=== PATIENT | female | born 1970 | race Caucasian/White ===

== ENCOUNTER 2025-09-27 09:59 | Day surgery (SDC) | payer OTHER ==
[~2025-09-27] VITALS: Ht 170 cm; Wt 120.4 kg
[~2025-09-27 09:59] MED LIST: BCOIRO PO; BIRTHCONTROL PILL; CEPH500 PO; CRUTCH USE; HYDACE5 PO; HYDHCL25 PO; IBUP600 PO; IBUP800 PO; MULVITA PO; Norco 5-325 Ta1 EACH PO; OXYACE5T PO; PROM25 PO; RXOXYACE PO; SERT100 PO; VENL75; VICODIN 5-3001 EACH PO; Zofran Odt4 MG SL
[2025-09-27 11:04] VITALS: BP 146/93
--- NOTE | 2025-09-27 11:22 | NUR ---
09/27/25 [address] History, Chart, Medications and Allergies reviewed before start of procedure.DR OSULLIVAN PROVIDING ANESTHESIA SEE RECORDS
[2025-09-27] MEDS ORDERED: Glycopyrrolate 0.2 MG/ML 5ML VIAL ONE (11:32)
--- NOTE | 2025-09-27 11:32 | NUR ---
History, Chart, Medications and Allergies reviewed before start of procedure.Patient confirms NPO status and agrees with scheduled surgery. Lungs clear T/O to Auscultation.Patient states colon prep results clear.
--- NOTE | 2025-09-27 12:27 | NUR ---
Patient States Post-Procedure ride home has been arranged. Discharged via wheelchair to private car for ride home. Discharge instructions reviewed with patient. Patient verbalizes understanding. Copy given to patient to take home.
== END 2025-09-27 23:00 | disposition home or self-care (01) ==
LOC: ORSCMMR 09:59 → ORD 11:30 → ORSCMMR 23:00
PROVIDERS: Internal Medicine Gastroenterology
PROC: 0DBN8ZX Excision of Sigmoid Colon, Via Natural or Artificial Opening Endoscopic, Diagnostic (ICD-10-PCS; principal; 2025-09-27 11:30)
DX: Z12.11 Encounter for screening for malignant neoplasm of colon (principal); K63.5 Polyp of colon; K64.8 Other hemorrhoids; F41.9 Anxiety disorder, unspecified; E66.01 Morbid (severe) obesity due to excess calories; Z68.41 Body mass index [BMI] 40.0-44.9, adult; I10 Essential (primary) hypertension; Z79.899 Other long term (current) drug therapy; F17.210 Nicotine dependence, cigarettes, uncomplicated
CPT/HCPCS: 88305; J2704; J7120